=== PATIENT | male | born 1950 | race Native Hawaiian/Other Pacific Islander ===

== ENCOUNTER 2018-03-11 23:36 | Emergency (ER) | payer SELFPAY ==
[~2018-03-11] VITALS: Ht 182.9 cm; Wt 82.0 kg
[2018-03-11 23:39] VITALS: BP 150/70; PULSE 67; RESP 18; TEMP 97.8; O2SAT 97
[2018-03-11] MEDS ORDERED: PYRI100T PO (23:59)
[2018-03-11] MEDS ORDERED: BISO2.5T4 PO (23:59)
[2018-03-11] MEDS ORDERED: VITA500T35 PO (23:59)
[2018-03-11] MEDS ORDERED: IVABRADINE PO ×2 (23:59)
[2018-03-11] MEDS ORDERED: ZOLP5TAB3 PO (23:59)
[2018-03-11] MEDS ORDERED: METF500T PO (23:59)
[2018-03-11] MEDS ORDERED: ATOR10TA15 PO (23:59)
[2018-03-11] MEDS ORDERED: VITA100T54 PO (23:59)
[2018-03-11] MEDS ORDERED: ALLO100T PO (23:59)
[2018-03-11] MEDS ORDERED: EZET1TAB8 PO (23:59)
--- NOTE | 2018-03-12 00:11 | PD ---
HPI Chief Complaint: Chest Pain Time Seen by Provider: 00:09 Travel History International Travel<30 days: No Contact w/Intl Traveler<30days: No Traveled to known affect area: No History of Present Illness HPI 68-year-old male with hypertension dyslipidemia and diabetes known coronary vessel disease status post CABG presents to the emergency department with right- sided chest pain 45 minutes. No associated nausea vomiting sweats shortness of breath or referred pain. Pain is 8-9/10 in intensity. Patient did not take any medications prior to arrival to the emergency department. Patient recently moved here from [facility]. No other complaints no abdominal pain no report of lower extremity pain or swelling. PFSH Past Medical History Narrative Medical CAD CABG hypertension dyslipidemia diabetes gouty arthritis occasional tobacco use; nursing notes reviewed Cardiovascular Problems: Yes (CABG x5) Coronary Artery Disease: Yes Diabetes: Yes Patient Takes Glucophage: Yes (unknown) Medical other: Yes (Poor historian for med history ) Myocardial Infarction: Yes Past Surgical History Coronary Artery Bypass Graft: Yes (x5 1991) Social History Alcohol Use: No Tobacco Use: No Substance Use: No Allergies-Medications (Allergen,Severity, Reaction): Coded Allergies: No Known Drug Allergies (Verified Allergy, Unknown, 03/11/18) Reported Meds & Prescriptions Reported Meds & Active Scripts Active Reported [Procoralan] 5 Mg PO DAILY [Procoralan] 5 Mg PO Vitamin B12 (Cyanocobalamin) 500 Mcg Tab 5,000 Mcg PO DAILY Vitamin B-1 (Thiamine HCl) 100 Mg Tab 100 Mg PO DAILY Allopurinol 100 Mg Tab 100 Mg PO DAILY Ezetimibe 10 Mg Tab 10 Mg PO DAILY Zolpidem (Zolpidem Tartrate) 5 Mg Tab 5 Mg PO HS PRN Vitamin B-6 (Pyridoxine HCl) 100 Mg Tab 100 Mg PO DAILY Metformin (Metformin HCl) 500 Mg Tab 500 Mg PO DAILY With a meal Bisoprolol-Hydrochlorothiazide 2.5-6.25 Mg Tab 1 Tab PO DAILY Atorvastatin (Atorvastatin Calcium) 10 Mg Tab 10 Mg PO HS Review of Systems Except as stated in HPI: all other systems reviewed are Neg Physical Exam Narrative GENERAL: Well-developed well-nourished male no acute distress no respiratory distress SKIN: Warm and dry. HEAD: Normocephalic. EYES: No scleral icterus. No injection or drainage. NECK: Supple, trachea midline. No JVD or lymphadenopathy. CARDIOVASCULAR: Regular rate and rhythm without murmurs, gallops, or rubs. RESPIRATORY: Breath sounds equal bilaterally. No accessory muscle use. GASTROINTESTINAL: Abdomen soft, non-tender, nondistended. MUSCULOSKELETAL: No cyanosis, or edema. Bilateral radial dorsalis pedis pulses 2+ to palpation BACK: Nontender without obvious deformity. No CVA tenderness. Data Data Last Documented VS Vital Signs Date Time Temp Pulse Resp B/P (MAP) Pulse Ox O2 Delivery O2 Flow Rate FiO2 03/12/18 02:22 03/12/18 00:14 95 Room Air 03/12/18 00:14 2.00 03/11/18 23:39 97.8 67 18 Orders Orders Electrocardiogram (03/12/18 00:11) Ckmb (Isoenzyme) Profile (03/12/18 00:11) Complete Blood Count With Diff (03/12/18 00:11) Comprehensive Metabolic Panel (03/12/18 00:11) Magnesium (Mg) (03/12/18 00:11) Prothrombin Time / Inr (Pt) (03/12/18 00:11) Act Partial Throm Time (Ptt) (03/12/18 00:11) Troponin I (03/12/18 00:11) Lipase (03/12/18 00:11) Ecg Monitoring (03/12/18 00:11) Bilateral Bp Monitoring (03/12/18 00:11) Iv Access Insert/Monitor (03/12/18 00:11) Oximetry (03/12/18 00:11) Oxygen Administration (03/12/18 00:11) Aspirin Chew (Aspirin Chew) (03/12/18 00:15) Sodium Chloride 0.9% Flush (Ns Flush) (03/12/18 00:15) Nitroglycerin Sl (Nitrostat Sl) (03/12/18 00:15) Chest, Pa & Lat (03/12/18 00:11) Sodium Chlor 0.9% 1000 Ml Inj (Ns 1000 M (03/12/18 00:15) CKMB (03/12/18 00:14) CKMB% (03/12/18 00:14) D-Dimer (03/12/18 01:04) Labs Laboratory Tests Test 03/12/18 00:14 White Blood Count 5.2 TH/MM3 Red Blood Count 5.23 MIL/MM3 Hemoglobin 16.1 GM/DL Hematocrit 46.1 % Mean Corpuscular Volume 88.2 FL Mean Corpuscular Hemoglobin 30.9 PG Mean Corpuscular Hemoglobin Concent 35.0 % Red Cell Distribution Width 12.3 % Platelet Count 153 TH/MM3 Mean Platelet Volume 9.3 FL Neutrophils (%) (Auto) 29.3 % Lymphocytes (%) (Auto) 50.2 % Monocytes (%) (Auto) 12.2 % Eosinophils (%) (Auto) 7.2 % Basophils (%) (Auto) 1.1 % Neutrophils # (Auto) 1.5 TH/MM3 Lymphocytes # (Auto) 2.6 TH/MM3 Monocytes # (Auto) 0.6 TH/MM3 Eosinophils # (Auto) 0.4 TH/MM3 Basophils # (Auto) 0.1 TH/MM3 CBC Comment DIFF FINAL Differential Comment Prothrombin Time 10.8 SEC Prothromb Time International Ratio 1.1 RATIO Activated Partial Thromboplast Time 23.2 SEC D-Dimer Quantitative (PE/DVT) 0.35 MG/L FEU Blood Urea Nitrogen 14 MG/DL Creatinine 1.24 MG/DL Random Glucose 99 MG/DL Total Protein 7.4 GM/DL Albumin 3.8 GM/DL Calcium Level 8.7 MG/DL Magnesium Level 2.2 MG/DL Alkaline Phosphatase 55 U/L Aspartate Amino Transf (AST/SGOT) 37 U/L Alanine Aminotransferase (ALT/SGPT) 39 U/L Total Bilirubin 0.5 MG/DL Sodium Level 142 MEQ/L Potassium Level 4.3 MEQ/L Chloride Level 105 MEQ/L Carbon Dioxide Level 30.9 MEQ/L Anion Gap 6 MEQ/L Estimat Glomerular Filtration Rate 58 ML/MIN Total Creatine Kinase 142 U/L Creatine Kinase MB 0.9 NG/ML Troponin I LESS THAN 0.02 NG/ML Lipase 209 U/L [facility] Medical Decision Making Medical Screen Exam Complete: Yes Emergency Medical Condition: Yes Medical Record Reviewed: Yes Interpretation(s) EKG normal sinus rhythm rate 63 normal axis and intervals no acute ST elevation injury pattern or ectopy noted Troponin I: Less than 0.02, not all Last Impressions Chest X-Ray 03/12/18 0011 Signed Impressions: CONCLUSION: No acute cardiopulmonary process. CBC & BMP Diagram 03/12/18 00:14 Total Protein 7.4, Albumin 3.8, Calcium Level 8.7, Magnesium Level 2.2, Alkaline Phosphatase 55, Aspartate Amino Transf (AST/SGOT) 37, Alanine Aminotransferase (ALT/SGPT) 39, Total Bilirubin 0.5 Vital Signs Date Time Temp Pulse Resp B/P (MAP) Pulse Ox O2 Delivery O2 Flow Rate FiO2 03/12/18 02:22 03/12/18 00:14 95 Room Air 03/12/18 00:14 148/72 (97) 03/12/18 00:14 97 Nasal Cannula 2.00 03/11/18 23:39 97.8 67 18 150/70 (96) 97 Differential Diagnosis Chest pain, atypical chest pain, ACS, GA, dissection, aneurysm, PE, esophageal spasm, pancreatitis, biliary colic Narrative Course Patient placed on teletypesetter monitor continuous pulse oximetry as well as IV access obtained specimens collections of resulting EKG shows no acute injury pattern change patient administered aspirin 162 mg by mouth as well as sublingual nitro glycerin 2:24 AM lab values are resulted and found to be in normal range first set of cardiac enzymes are not elevated and again EKG shows no acute injury pattern. Patient is asymptomatic at this time after nitroglycerin. Patient's case discussed in detail with patient and with family member at bedside with recommendation for observation admission to chest pain center per protocol. Patient states that he feels well his pain has resolved and he does not want to be admitted to the hospital. Patient is aware of risk benefit of not being admitted versus being admitted and undergoing ongoing testing and serial enzymes to further evaluate to identify if chest pain is or is not cardiac related. Patient is aware that a single set of cardiac enzymes and EKG are not sufficient to rule out specifically cardiac related angina/ischemia. Patient states that he does not want to stay in the hospital he will follow-up with his guest relations officer Dr. Huang next week or he will return if he has any recurrent symptoms. Family member is at bedside and is aware of this benefit as well including deterioration of condition if this is a cardiac event leading to cardiac injury or even . AMA: The risks of leaving against medical advice without further evaluation treatment were discussed with the patient. These risks include cardiac dysfunction, cardiac dysrhythmia, possible heart attack, possible stroke or . The patient indicated understanding of these risks and appeared to have the capacity to make this decision. Physician Communication Physician Communication call placed to his guest relations officer Dr Huang -- not salon assistant Diagnosis Primary Impression: Chest pain Additional Impressions: H/O atherosclerotic cardiovascular disease Left against medical advice Referrals: Lina Huang MD Patient Instructions: General Instructions Disposition: 07 AGAINST MEDICAL ADVICE Condition: Stable Aviva Shaver MD Mar 12, 2018 00:11
[2018-03-12 00:14] VITALS: BP 148/72; O2SAT 95
[2018-03-12] MEDS ORDERED: ASPIRIN 81 MG CHEW TAB PO ONE (00:15)
[2018-03-12] MEDS ORDERED: SODIUM CHLORIDE 0.9% FLUSH 10 ML FLUSH IVF PRN (00:15)
[2018-03-12] MEDS ORDERED: SODIUM CHLOR 0.9% 1000 ML INJ 1,000 ML IV SCH (00:15)
[2018-03-12] MEDS: NITROGLYCERIN 0.4 MG SL 25 TABS/BTL SL SCH ×2 (00:20→00:25)
[2018-03-12 00:27] LABS: AUTOMATED NEUTROPHIL # 1.5 TH/MM3 (1.8-7.7); BASOPHIL # 0.1 TH/MM3 (0-0.2); BASOPHIL % 1.1 % (0.0-2.0); EOSINOPHIL # 0.4 TH/MM3 (0-0.4); EOSINOPHIL % 7.2 % (0.0-4.0); HEMATOCRIT 46.1 % (39.0-51.0); HEMOGLOBIN 16.1 GM/DL (13.0-17.0); LYMPH % 50.2 % (9.0-44.0); LYMPHOCYTE # 2.6 TH/MM3 (1.0-4.8); MEAN CELL VOLUME 88.2 FL (80.0-100.0); MEAN CORPUSCULAR HEMOGLOBIN 30.9 PG (27.0-34.0); MEAN PLATELET VOLUME 9.3 FL (7.0-11.0); MONO % 12.2 % (0.0-8.0); MONOCYTE # 0.6 TH/MM3 (0-0.9); NEUT % 29.3 % (16.0-70.0); PLATELET COUNT 153 TH/MM3 (150-450); RED BLOOD COUNT 5.23 MIL/MM3 (4.50-5.90); RED CELL DISTRIBUTION WIDTH 12.3 % (11.6-17.2); WHITE BLOOD COUNT 5.2 TH/MM3 (4.0-11.0)
--- NOTE | 2018-03-12 00:40 | RADRPT ---
EXAM DATE: 03/12/2018 12:38 AM EDT AGE/SEX: 68 years / Male INDICATIONS: Chest pain for 1 hour CLINICAL DATA: This is the patient's initial encounter. Patient reports that signs and symptoms have been present for 1 day and indicates a pain score of 7/10. MEDICAL/SURGICAL HISTORY: Diabetes mellitus type II. CABG. COMPARISON: No prior [facility] exams available for comparison. FINDINGS: The patient is status post sternotomy. The heart size is normal. The lungs are clear. CONCLUSION: No acute cardiopulmonary process. Electronically signed by: Jovanny Grissom MD 03/12/2018 12:39 AM EDT
[2018-03-12 00:54] LABS: INTERNATIONAL NORMALIZED RATIO 1.1 RATIO; PROTHROMBIN TIME - PATIENT 10.8 SEC (9.8-11.6)
[2018-03-12 00:59] LABS: ALBUMIN 3.8 GM/DL (3.4-5.0); ALKALINE PHOSPHATASE 55 U/L (45-117); ALT (GPT) 39 U/L (12-78); AST (GOT) 37 U/L (15-37); BICARBONATE 30.9 MEQ/L (21.0-32.0); BLOOD UREA NITROGEN 14 MG/DL (7-18); CALCIUM 8.7 MG/DL (8.5-10.1); CHLORIDE 105 MEQ/L (98-107); CREATININE 1.24 MG/DL (0.60-1.30); GLOMERULAR FILTRATION RATE 58 ML/MIN (>89); GLUCOSE,RANDOM 99 MG/DL (74-106); MAGNESIUM 2.2 MG/DL (1.5-2.5); SODIUM (NA) 142 MEQ/L (136-145); TOTAL BILIRUBIN ADULT 0.5 MG/DL (0.2-1.0); TOTAL PROTEIN 7.4 GM/DL (6.4-8.2); TROPONIN I LESS THAN 0.02 NG/ML (0.02-0.05)
--- NOTE | 2018-03-13 08:44 | EKG ---
Date Performed: 03/11/2018 Time Performed: 23:46:56 PTAGE: 68 years EKG: Sinus rhythm NORMAL ECG NO PREVIOUS TRACING DOCTOR: Jd Hillman Interpretating Date/Time 03/13/2018 08:42:31
== END 2018-03-12 02:40 | disposition left against medical advice (07) ==
LOC: NEPC 23:36
DX: R07.9 Chest pain, unspecified (principal); I25.10 Atherosclerotic heart disease of native coronary artery without angina pectoris; I10 Essential (primary) hypertension; E78.5 Hyperlipidemia, unspecified; E11.9 Type 2 diabetes mellitus without complications; M10.9 Gout, unspecified; I25.2 Old myocardial infarction; Z79.899 Other long term (current) drug therapy
CPT/HCPCS: 71046; 80053; 82550; 82552; 83690; 83735; 84484; 85025; 85379; 85610; 85730; 93005; 96360; 99285; J7030